=== PATIENT | female | born 1995 | race Caucasian/White ===

== ENCOUNTER 2018-12-09 19:46 | Emergency (ER) | payer SELFPAY ==
[~2018-12-09] VITALS: Ht 162.6 cm; Wt 97.8 kg
[2018-12-09 20:04] VITALS: Ht 162.6 cm; Wt 97.8 kg
[2018-12-09] MEDS ORDERED: LIDOCAINE/MYLANTA 40 ML BTL PO STA (20:48)
[2018-12-09] MEDS ORDERED: BELLADONNA/PHENOBARBITAL TAB PO STA (20:48)
[2018-12-09] MEDS ORDERED: FAMO40TA66 PO (21:00)
[2018-12-09] MEDS ORDERED: UDMYL PO (21:00)
--- NOTE | 2018-12-09 21:03 | ERD ---
ER Documentation Chief Complaint Chief Complaint epigastric pain w/burning sensations up her chest x 1 week HPI 23-year-old female presents with epigastric pain that she describes a burning and radiates up to her throat. Pain is usually worse after she eats that she does admit to see enjoys eating spicy food often. She denies the possibility of . She is concerned because this also gives her chest pain. She had no fever. No nausea or vomiting. Has not taken any medications for her symptoms. ROS All systems reviewed and are negative except as per history of present illness. Medications Home Meds Active Scripts Magaldrate/Simethicone* (Mag-Al Plus Suspension*) 30 Ml Oral.susp, 30 ML PO Q6H PRN for GASTROINTESTINAL UPSET for 5 Days, ML Prov:MARKUS ROA PA-C 12/09/18 Famotidine* (Pepcid*) 40 Mg Tablet, 40 MG PO HS, #30 TAB Prov:MARKUS ROA PA-C 12/09/18 Allergies Allergies: Coded Allergies: No Known Allergy (Unverified , 12/09/18) PMhx/Soc Medical and Surgical Hx: pt denies Medical Hx, pt denies Surgical Hx History of Surgery: No Anesthesia Reaction: No Hx Neurological Disorder: No Hx Respiratory Disorders: No Hx Cardiac Disorders: No Hx Psychiatric Problems: No Hx Miscellaneous Medical Probl: No Hx Alcohol Use: No Hx Substance Use: No Hx Tobacco Use: No Smoking Status: Never smoker FmHx Family History: No diabetes Physical Exam Vitals Vital Signs Date Temp Pulse Resp B/P (MAP) Pulse Ox O2 O2 Flow FiO2 Time Delivery Rate 12/09/18 97.5 79 18 123/60 98 20:04 (81) Physical Exam INITIAL VITAL SIGNS: Reviewed by me GENERAL: Awake, alert and oriented x 4, well appearing, nontoxic, speaking in full sentences. No acute distress THROAT: No tonilar erythema or edema. No exudates. Uvula midline. No kissing tonsils. RESPIRATORY: Clear to auscultation bilaterally. Symmetric chest wall rise. No wheezing or rales. No accessory muscle use. CV: Regular rate and rhythm. No murmurs, rubs, or gallops. ABDOMEN: Soft, non-distended. Nontender. Negative [place]. Negative [place] point tenderness. No CVA tenderness bilaterally. No guarding. No rebound. Results 24 hrs Laboratory Tests Test 12/09/18 20:49 12/09/18 20:50 Bedside Urine pH (LAB) 5.5 Bedside Urine Protein (LAB) Negative Bedside Urine Glucose (UA) Negative Bedside Urine Ketones (LAB) Trace Bedside Urine Blood Trace-intact Bedside Urine Nitrite (LAB) Negative Bedside Urine Leukocyte Esterase (L Trace POC Beta HCG, Qualitative NEGATIVE Current Medications Medications Dose Sig/Johnnie Start Time Status Last (Trade) Ordered Route PRN Stop Time Admin Dose Reason Admin 40 ml ONCE STAT 12/09/18 DC Miscellaneous PO 20:48 Medication 12/09/18 20:49 (Gi Cocktail (2)) [place]/ 2 tab ONCE STAT 12/09/18 DC Phenobarbital PO 20:48 () 12/09/18 20:49 Procedures/MDM The differential diagnosis includes but is not limited to appendicitis, cholelithiasis, cholecystitis, pancreatitis, hepatitis, gastritis, peptic ulcer disease, bowel obstruction, diverticulitis, renal disease including stones, torsion, AAA, pyelonephritis, and others. Patient's exam is benign she has no tenderness to palpation throughout. EKG is normal with no evidence of ST elevation or acute ischemic changes. GI cocktail given here. She is not . Discharged with Pepcid and Mylanta counseled on dietary changes to make. Patient counseled regarding my diagnostic impression and care plan. Prior to discharge all questions answered. Pt agrees with treatment plan and understands strict return precautions. Pt is instructed to follow up with primary care provider within 24-48 hours. Precautionary instructions provided including instructions to return to the ER if not improving or for any worsening or changing symptoms or concerns. Departure Diagnosis: Primary Impression: Epigastric pain Condition: Stable Patient Instructions: Gerd (Adult) Additional Instructions: Call your primary care doctor TOMORROW for an appointment during the next 1-2 days.See the doctor sooner or return here if your condition worsens before your appointment time. MARKUS ROA PA-C Dec 09, 2018 21:03
[2018-12-09 22:12] VITALS: BP 122/64; PULSE 78; RESP 16
== END 2018-12-09 22:13 | disposition home or self-care (01) ==
LOC: FTE 19:46
DX: R10.13 Epigastric pain (principal)
CPT/HCPCS: 81003; 81025; 93005